=== PATIENT | female | born 1990 | race American Indian/Alaskan Native ===

== ENCOUNTER 2016-07-01 21:34 | Emergency (ER) | payer SELFPAY ==
[2016-07-01 22:05] VITALS: BP 127/87
[2016-07-01 22:32] LABS: Basophils % (Auto) 0.3 % (0.0-1.8); Eosinophils % (Auto) 1.5 % (0.0-4.3); Hematocrit 33.3 % (30.3-42.9); Hemoglobin 10.9 gm/dl (10.1-14.3); Mean Corpuscular HGB Conc 33 % (30-34); Mean Corpuscular Hemoglobin 29 pg (28-32); Mean Corpuscular Volume 87 fl (79-97); Platelet Count 194 K/mm3 (140-440); Red Blood Count 3.82 M/mm3 (3.65-5.03); Red Cell Distribution Width 13.6 % (13.2-15.2); White Blood Count 8.9 K/mm3 (4.5-11.0)
--- NOTE | 2016-07-02 00:49 | Ultrasound Report ---
FINAL REPORT PROCEDURE: US OB TRANSVAGINAL TECHNIQUE: Real-time transabdominal and transvaginal sonography of the uterus, placenta, amniotic fluid, adnexa, and fetus was performed with image documentation. Measurements were obtained to determine age/size. M-mode Doppler was used to document heartbeat. CPT 48711 and 76056 HISTORY: bleeding COMPARISON: No prior studies are available for comparison. FINDINGS: The uterus size is 10.8 x 5.7 x 7.4 centimeters. The endometrium is thickened measuring approximately 12 millimeters. There is no evidence of a gestational sac. The right ovary is not well visualized on this study. The left ovary size is 2.8 x 2.1 x 2.8 centimeters. There is a complex cyst on the left ovary this measures 19 millimeters. No evidence of fluid in the lower pelvis. The patient's current beta HCG level is 2888. The above findings may indicate failure. Ectopic is not entirely excluded on the basis of this single study. Followup studies will be needed which should include serial beta HCG levels and repeat ultrasound in approximately 10 -14 days. IMPRESSION: There is no evidence of a gestational sac on this examination. The ovaries are not well evaluated on the examination. The right ovary is not visualized. There appears to be a small complex cyst on the left ovary, this measures 19 millimeters. The findings may indicate failure. Ectopic is not entirely excluded on the basis of this study. Followup studies will be needed which should include serial beta HCG levels and repeat ultrasound in approximately 10-14 days.
--- NOTE | 2016-07-02 00:49 | Ultrasound Report ---
FINAL REPORT PROCEDURE: Obstetrical ultrasound transvaginal and transabdominal TECHNIQUE: Real-time transabdominal and transvaginal sonography of the uterus, placenta, amniotic fluid, adnexa, and fetus was performed with image documentation. Measurements were obtained to determine age/size. M-mode Doppler was used to document heartbeat. CPT 50405 and 03051 HISTORY: bleeding COMPARISON: No prior studies are available for comparison. FINDINGS: The uterus size is 10.8 x 5.7 x 7.4 centimeters. The endometrium is thickened measuring approximately 12 millimeters. There is no evidence of a gestational sac. The right ovary is not well visualized on this study. The left ovary size is 2.8 x 2.1 x 2.8 centimeters. There is a complex cyst on the left ovary this measures 19 millimeters. No evidence of fluid in the lower pelvis. The patient's current beta HCG level is 2888. The above findings may indicate failure. Ectopic is not entirely excluded on the basis of this single study. Followup studies will be needed which should include serial beta HCG levels and repeat ultrasound in approximately 10 -14 days. IMPRESSION: There is no evidence of a gestational sac on this examination. The ovaries are not well evaluated on the examination. The right ovary is not visualized. There appears to be a small complex cyst on the left ovary, this measures 19 millimeters. The findings may indicate failure. Ectopic is not entirely excluded on the basis of this study. Followup studies will be needed which should include serial beta HCG levels and repeat ultrasound in approximately 10-14 days.
[2016-07-02 00:54] LABS: Bilirubin,Urine NEG (Negative); Blood,Urine LG (Negative); Ketones,Urine NEG (Negative); Leukocyte Esterase,Urine SM (Negative); Mucus,Urine 3+ /HPF; Nitrite,Urine NEG (Negative); Urobilinogen,Urine < 2.0 mg/dL (<2.0)
[2016-07-02 00:57] LABS: Protein,Urine >500 mg/dL (Negative); RBC,Urine > 182.0 /HPF (0.0-6.0); WBC,Urine > 182.0 /HPF (0.0-6.0)
--- NOTE | 2016-07-07 20:26 | ED Elopement Review ---
ED Pt Elopement review - Results review Lab results: Laboratory Tests 07/01/16 07/01/16 07/01/16 22:16 22:16 22:16 WBC 8.9 RBC 3.82 Hgb 10.9 Hct 33.3 MCV 87 MCH 29 MCHC 33 RDW 13.6 Plt Count 194 Lymph % (Auto) 20.0 [place]ope % (Auto) 9.9 H Eos % (Auto) 1.5 Baso % (Auto) 0.3 Lymph # 1.8 Slope # 0.9 H Eos # 0.1 Baso # 0.0 Seg Neutrophils % 68.3 Seg Neutrophils # 6.1 HCG, Quant 2888 H Urine Color Urine Turbidity Urine pH Ur Specific [place] Urine Protein Urine Glucose (UA) Urine Ketones Urine Blood Urine Nitrite Urine Bilirubin Urine Urobilinogen Ur Leukocyte Esterase Urine WBC (Auto) Urine RBC (Auto) U Epithel Cells (Auto) Urine WBC Clumps Urine Mucus Blood Type O POSITIVE NATAN Antibody Screen Negative 07/02/16 00:40 WBC RBC Hgb Hct MCV MCH MCHC RDW Plt Count Lymph % (Auto) [place] % (Auto) Eos % (Auto) Baso % (Auto) Lymph # [place] # Eos # Baso # Seg Neutrophils % Seg Neutrophils # HCG, Quant Urine Color Kristina Urine Turbidity Cloudy Urine pH 6.0 Ur Specific [place] 1.026 Urine Protein >500 Urine Glucose (UA) 50 Urine Ketones Neg Urine Blood Lg Urine Nitrite Neg Urine Bilirubin Neg Urine Urobilinogen < 2.0 Ur Leukocyte Esterase Sm Urine WBC (Auto) > 182.0 H Urine RBC (Auto) > 182.0 U Epithel Cells (Auto) 49.0 H Urine WBC Clumps 3+ Urine Mucus 3+ Blood Type NATAN Antibody Screen - Call Back decision Pt Call Back Decision: Pt to F/U with PMD (abnormal UA and sonogram)
== END 2016-07-02 05:50 | disposition left against medical advice (07) ==
LOC: ED 21:34
DX: O20.9 Hemorrhage in early pregnancy, unspecified (principal); Z53.21 Procedure and treatment not carried out due to patient leaving prior to being seen by health care provider; Z3A.09 9 weeks gestation of pregnancy
CPT/HCPCS: 36415; 76801; 76817; 81001; 84702; 85025; 86850; 86900; 86901